=== PATIENT | female | born 2000 | race Caucasian/White ===

== ENCOUNTER 2023-09-22 06:44 | Emergency (ER) | payer SELFPAY ==
[~2023-09-22] VITALS: Ht 172.7 cm; Wt 79.4 kg
== END 2023-09-22 09:06 | disposition home or self-care (01) ==
LOC: ED 06:44
DX: O03.9 Complete or unspecified spontaneous abortion without complication (principal); Z98.890 Other specified postprocedural states; Z90.49 Acquired absence of other specified parts of digestive tract